=== PATIENT | female | born 1990 | race Caucasian/White ===

== ENCOUNTER 2018-02-12 00:12 | Emergency (ER) | payer OTHER ==
[2018-02-12 00:52] VITALS: BP 118/75; PULSE 79; TEMP 97.7; BMI 31.1
--- NOTE | 2018-02-12 01:10 | PDOC ---
History of Present Illness - General History Source: Patient Exam Limitations: No Limitations - History of Present Illness Initial Comments: 02/12/18 01:28 The patient is a 27 year old female with a significant PMH of left oophorectomy and appendectomy who presents to the emergency department with lower abdominal pain beginning approximately 3 hours ago. The patient reports eating chicken breast and salad last night and developing lower abdominal pain about 30 minutes later at 10:00PM. She states her lower abdominal pain is worse in the RLQ, which is aggravated by laughing, coughing, and standing upright. She reports taking Motrin 600mg to no relief. The patient notes her sister said she had mild abdominal pain after eating as well, but is now sleeping comfortably. The patient states she was in her usual state of health prior to 10:00PM. The patient denies chest pain, shortness of breath, headache and dizziness. Denies fever, nausea, vomit, diarrhea and constipation. Denies dysuria, frequency, urgency and hematuria. LMP: 3 weeks ago. Allergies: NKA Past surgical history: Left oophorectomy. Appendectomy. Abdominoplasty. Social history: No reported cigarette, alcohol, or drug use. PCP: Dr. Raymond Zavala <Ike Conner - Last Filed: 02/12/18 02:31> <Cassia Knight - Last Filed: 02/12/18 04:52> - General Chief Complaint: Pain, Acute Stated Complaint: ABD PAIN Past History <Ike Conner - Last Filed: 02/12/18 02:31> - Past Medical History Asthma: No Cancer: No Cardiac Disorders: No Diabetes: No HTN: No Seizures: No Thyroid Disease: No - Surgical History Abdominal Surgery: Yes Appendectomy: Yes - Reproductive History (#): 2 Para: 1 - Suicide/Smoking/Psychosocial Hx Smoking Status: No Smoking History: Never smoked Have you smoked in the past 12 months: No Number of Cigarettes Smoked Daily: 0 Information on smoking cessation initiated: No Hx Alcohol Use: No Drug/Substance Use Hx: No Substance Use Type: None Hx Substance Use Treatment: No <Cassia Knight - Last Filed: 02/12/18 04:52> - Past Medical History Allergies/Adverse Reactions: Allergies Allergy/AdvReac Type Severity Reaction Status Date / Time No Known Allergies Allergy Verified 02/12/18 00:28 Home Medications: Ambulatory Orders Doxycycline Hyclate 100 mg PO BID 14 Days #27 tablet 02/12/18 Review of Systems - Review of Systems Able to Perform ROS?: Yes Comments:: 02/12/18 01:28 CONSTITUTIONAL: (+) Chills yesterday (resolved). Absent: fever, no fatigue EYES: Absent: visual changes ENT: Absent: ear pain, no sore throat CARDIOVASCULAR: Absent: chest pain, no palpitations RESPIRATORY: Absent: cough, no SOB GI: (+) Lower abdominal pain, worse in RLQ. Absent: no nausea, no vomiting, no constipation, no diarrhea GENITOURINARY: Absent: dysuria, no frequency, no hematuria MUSKULOSKELETAL: Absent: back pain, no arthralgia, no myalgia SKIN: Absent: rash NEURO: Absent: headache <Ike Conner - Last Filed: 02/12/18 02:31> *Physical Exam - Vital Signs Last Vital Signs Temp Pulse Resp BP Pulse Ox 97.7 F 79 20 118/75 96 02/12/18 00:28 02/12/18 00:28 02/12/18 00:28 02/12/18 00:28 02/12/18 00:28 - Physical Exam Comments: 02/12/18 02:32 GENERAL: Well-appearing, well-nourished. No apparent distress. HEENT: Normocephalic, atraumatic. PERRL, EOM intact. CARDIOVASCULAR: Normal S1, S2. Regular rate and rhythm. PULMONARY: Clear to auscultation bilaterally. ABDOMEN: (+) RLQ tenderness. (+) Periumbilical tenderness. (+) Healed abdominoplasty. Soft, non-distended, non-tender. EXTREMITIES: Normal ROM in all four extremities. No gross deformities. SKIN: Warm, dry. No rash NEUROLOGICAL: No focal neurological deficits. <Ike Conner - Last Filed: 02/12/18 02:31> - Vital Signs Last Vital Signs Temp Pulse Resp BP Pulse Ox 97.7 F 79 20 118/75 96 02/12/18 00:28 02/12/18 00:28 02/12/18 00:28 02/12/18 00:28 02/12/18 00:28 - Physical Exam Female Pelvic Exam: positive: normal external exam, cervical os closed, discharge (white/yellow), adnexal tenderness (R), other (+IUD strings visualized , +CMT). negative: lesions, vaginal bleeding <Cassia Knight - Last Filed: 02/12/18 04:52> ED Treatment Course - LABORATORY CBC & Chemistry Diagram: 02/12/18 02:15 02/12/18 02:15 <Ike Conner - Last Filed: 02/12/18 02:31> - LABORATORY CBC & Chemistry Diagram: 02/12/18 02:15 02/12/18 02:15 <Cassia Knight - Last Filed: 02/12/18 04:52> Medical Decision Making - Medical Decision Making 02/12/18 04:44 Pt presenting with lower abd pain, vomiting and diarrhea. On exam, pain predominantly R pelvic region, pt is s/p appendectomy as a child. Pelvic exam revealed white/yellow discharge, CMT and R adnexal tnd c/w PID. Will treat with ceftriaxone 250mg IM and doxy 100mg BID x14 days. Feeling improved after pain meds, no further episodes of vomiting. Will dc home - advised to return to ER if sxs worsen. Instructed to abstain from sex until she knows her results and if pos that her partner must be treated as well. Pt verbalized understanding. <Cassia Knight - Last Filed: 02/12/18 04:52> *DC/Admit/Observation/Transfer - Attestations Scribe Attestion: 02/12/18 01:28 Documentation prepared by Ike Conner, acting as biomedical field service engineer for Cassia Knight DO. <Ike Conner - Last Filed: 02/12/18 02:31> - Discharge Dispostion Admit: No <Cassia Knight - Last Filed: 02/12/18 04:52> Diagnosis at time of Disposition: Pelvic pain - Discharge Dispostion Disposition: HOME - Prescriptions Prescriptions: Doxycycline Hyclate 100 mg PO BID 14 Days #27 tablet - Referrals Referrals: Raymond Zavala [Primary Care Provider] - - Patient Instructions Printed Discharge Instructions: DI for Pelvic Inflammatory Disease Additional Instructions: Take the antibiotics as prescribed, return to the ER if your symptoms worsen - fever, chills, more vomiting. You may call [phone] in 3-4 days for results of your tests.
[2018-02-12] MEDS ORDERED: SODIUM CHLORIDE 1,000 ML IV STA (01:28)
[2018-02-12] MEDS ORDERED: morphine CARPU-JECT 2 MG/1 ML DISP.SYRIN IVPUSH ONE (01:28)
[2018-02-12] MEDS ORDERED: ONDANSETRON 4 MG/2 ML VIAL IVPUSH ONE (01:29)
[2018-02-12] MEDS ORDERED: morphine SULFATE 4 MG/ML VIAL ONE (02:25)
[2018-02-12] MEDS ORDERED: ONDANSETRON 4 MG/2 ML VIAL ONE (02:25)
[2018-02-12 02:28] LABS: BASO % 0.6 % (0-2.0); EOS % 2.2 % (0-4.5); HEMOGLOBIN 12.9 GM/dL (10.7-15.3); LYMPH % 20.8 % (8-40); MCH 32.1 pg (25.7-33.7); MEAN CELL VOLUME 91.7 fl (80-96); MEAN PLT VOLUME 9.1 fl (7.5-11.1); MONO % 7.2 % (3.8-10.2); NEUT % 69.2 % (42.8-82.8); PLATELET COUNT 205 K/MM3 (134-434); RBC 4.04 M/mm3 (3.60-5.2); RDW 13.2 % (11.6-15.6)
[2018-02-12 02:45] LABS: URINE APPEARANCE SLCLOUDY; URINE BILIRUBIN NEGATIVE (<2.0 mg/dL); URINE COLOR YELLOW; URINE GLUCOSE (UA) NEGATIVE (NEGATIVE); URINE KETONE NEGATIVE (NEGATIVE); URINE NITRITE NEGATIVE (NEGATIVE); URINE PROTEIN NEGATIVE (NEGATIVE); URINE UROBILINOGEN NEGATIVE mg/dL (0.2-1.0)
[2018-02-12 02:46] LABS: URINE LEUK ESTERASE 2+ (NEGATIVE)
[2018-02-12 02:56] LABS: ALBUMIN 3.6 g/dl (3.4-5.0); ANION GAP 9 (8-16); BILIRUBIN,TOTAL 0.5 mg/dL (0.2-1.0); BLOOD UREA NITROGEN 10 mg/dL (7-18); CALCIUM 8.3 mg/dL (8.5-10.1); CHLORIDE 106 mmol/L (98-107); CO2 24 mmol/L (21-32); CREATININE 0.7 mg/dL (0.55-1.02); GLUCOSE,RANDOM 85 mg/dL (74-106); POTASSIUM 3.9 mmol/L (3.5-5.1); SGOT/AST 23 U/L (15-37); SGPT/ALT 27 U/L (12-78); SODIUM 139 mmol/L (136-145); TOT PROT 7.3 g/dl (6.4-8.2)
[2018-02-12 02:58] LABS: ALK PHOS 71 U/L (45-117)
[2018-02-12 03:28] LABS: EPI CELLS FEW /HPF (FEW); URINE BACTERIA RARE /hpf (NONE SEEN); URINE MUCUS FEW
[2018-02-12] MEDS ORDERED: KETOROLAC TROMETHAMINE 30 MG/1 ML VIAL IVPUSH ONE (03:35)
[2018-02-12] MEDS ORDERED: KETOROLAC TROMETHAMINE 30 MG/1 ML VIAL ONE (03:36)
[2018-02-12] MEDS ORDERED: DOXYCYCLINE HYCLATE 100 MG CAPSULE PO ONE ×2 (04:41→04:46)
[2018-02-12] MEDS ORDERED: LIDOCAINE HCL/PF 1% SDV 5ML VIAL ONE (04:46)
[2018-02-12] MEDS ORDERED: cefTRIAXone SODIUM 1 GM VIAL ONE (04:47)
== END 2018-02-12 05:13 | disposition home or self-care (01) ==
LOC: JER 00:12
PROC: 3E02329 Introduction of Other Anti-infective into Muscle, Percutaneous Approach (ICD-10-PCS; principal; 2018-02-12)
PROC: 3E0337Z Introduction of Electrolytic and Water Balance Substance into Peripheral Vein, Percutaneous Approach (ICD-10-PCS; 2018-02-12)
PROC: 3E033NZ Introduction of Analgesics, Hypnotics, Sedatives into Peripheral Vein, Percutaneous Approach (ICD-10-PCS; 2018-02-12)
PROC: 3E0333Z Introduction of Anti-inflammatory into Peripheral Vein, Percutaneous Approach (ICD-10-PCS; 2018-02-12)
PROC: 3E033GC Introduction of Other Therapeutic Substance into Peripheral Vein, Percutaneous Approach (ICD-10-PCS; 2018-02-12)
DX: N73.8 Other specified female pelvic inflammatory diseases (principal); R10.2 Pelvic and perineal pain; Z90.721 Acquired absence of ovaries, unilateral; Z97.5 Presence of (intrauterine) contraceptive device
CPT/HCPCS: 36415; 80053; 81003; 81015; 83690; 84702; 85025; 87086; 87491; 87591; 99281-25; 99283-25; J7030

== ENCOUNTER 2018-05-08 22:27 | Emergency (ER) | payer OTHER ==
[2018-05-08 22:49] VITALS: BP 146/78; PULSE 75; TEMP 98.1; BMI 32.9
--- NOTE | 2018-05-09 01:09 | PDOC ---
History of Present Illness - General Chief Complaint: Cold Symptoms Stated Complaint: FATIGUE Time Seen by Provider: 05/08/18 23:04 History Source: Patient Exam Limitations: No Limitations - History of Present Illness Initial Comments: 05/09/18 01:07 Best Contact: PCP:None Pmhx: None Pshx: 2015: Abdominoplasty, at 9 years: Left oophorectomy Allergies:NKDA FH:0 Social Hx: Cigarettes/ 0 Alcohol/ social Drugs/0 LMP:04/22/2018 27-year-old female presents to the ER complaining of sore throat described as 5/ 10 achy nonradiating intermittent discomfort with left ear fullness/subjective fever but denies nausea/vomiting/diarrhea. Patient denies dizziness, headache, lightheadedness, facial pains, rhinorrhea, nasal congestion, neck stiffness/pain , back pains, chest pain, shortness of breath, abdominal pains, flank pains, urinary symptoms. Past History - Past Medical History Allergies/Adverse Reactions: Allergies Allergy/AdvReac Type Severity Reaction Status Date / Time No Known Allergies Allergy Verified 02/12/18 00:28 Home Medications: Ambulatory Orders Doxycycline Hyclate 100 mg PO BID 14 Days #27 tablet 02/12/18 Asthma: No Cancer: No Cardiac Disorders: No CVA: No COPD: No Diabetes: No HTN: No Seizures: No Thyroid Disease: No - Surgical History Abdominal Surgery: Yes (A/P, L oophrectomy) Appendectomy: Yes - Reproductive History (#): 2 Para: 1 - Suicide/Smoking/Psychosocial Hx Smoking Status: No Smoking History: Never smoked Have you smoked in the past 12 months: No Number of Cigarettes Smoked Daily: 0 Information on smoking cessation initiated: No Hx Alcohol Use: No Drug/Substance Use Hx: No Substance Use Type: None Hx Substance Use Treatment: No Review of Systems - Review of Systems Able to Perform ROS?: Yes Comments:: 05/09/18 01:04 CONSTITUTIONAL: +subjective fever Absent: chills, diaphoresis, generalized weakness, malaise, loss of appetite HEENT: +sore throat Absent: rhinorrhea, nasal congestion, throat swelling, difficulty swallowing, mouth swelling, ear pain, eye pain, visual Changes CARDIOVASCULAR: Absent: chest pain, loss of consciousness, palpitations, irregular heart rate, peripheral edema RESPIRATORY: +non productive cough Absent: shortness of breath, dyspnea with exertion, orthopnea, wheezing, stridor , hemoptysis GASTROINTESTINAL: Absent: abdominal pain, abdominal distension, nausea, vomiting, diarrhea, constipation, melena, hematochezia GENITOURINARY: Absent: dysuria, frequency, urgency, hesitancy, hematuria, flank pain, genital pain MUSCULOSKELETAL: Absent: myalgia, arthralgia, joint swelling SKIN: Absent: rash, itching, pallor HEMATOLOGIC/IMMUNOLOGIC: Absent: easy bleeding, easy bruising, lymphadenopathy, frequent infections ENDOCRINE: Absent: unexplained weight gain, unexplained weight loss, heat intolerance, cold intolerance NEUROLOGIC: Absent: headache, focal weakness or paresthesias, dizziness, unsteady gait, seizure, mental status changes, bladder or bowel incontinence Is the patient limited [place]ian proficient: No *Physical Exam - Vital Signs Last Vital Signs Temp Pulse Resp BP Pulse Ox 98.1 F 75 20 146/78 98 05/08/18 22:44 05/08/18 22:44 05/08/18 22:44 05/08/18 22:44 05/08/18 22:44 - Physical Exam Comments: 05/09/18 01:05 GENERAL: Well developed, well nourished. Awake and alert. No acute distress. HEENT: Normocephalic, atraumatic. PERRLA, EOMI. No conjunctival pallor. Sclera are non- icteric. Moist mucous membranes. Oropharynx is clear. NECK: Supple. Full ROM. No JVD. Carotid pulses 2+ and symmetric, without bruits. No thyromegaly. No lymphadenopathy. CARDIOVASCULAR: Regular rate and rhythm. No murmurs, rubs, or gallops. Distal pulses are 2+ and symmetric. PULMONARY: No evidence of respiratory distress. Lungs clear to auscultation bilaterally. No wheezing, rales or rhonchi. ABDOMINAL: Soft. Non-tender. Non-distended. No rebound or guarding. No organomegaly. Normoactive bowel sounds. MUSCULOSKELETAL Normal range of motion at all joints. No bony deformities or tenderness. No CVA tenderness. EXTREMITIES: No cyanosis. No clubbing. No edema. No calf tenderness. SKIN: Warm and dry. Normal capillary refill. No rashes. No jaundice. NEUROLOGICAL: Alert, awake, appropriate. Cranial nerves 2-12 intact. No deficits to light touch and temperature in face, upper extremities and lower extremities. No motor deficits in the in face, upper extremities and lower extremities. Normoreflexic in the upper and lower extremities. Normal speech. Toes are down- going bilaterally. Gait is normal without ataxia. PSYCHIATRIC: Cooperative. Good eye contact. Appropriate mood and affect. ED Treatment Course - ADDITIONAL ORDERS Additional order review: 05/09/18 00:23 Group A Strep Rapid Antigen - Preliminary Throat *DC/Admit/Observation/Transfer Diagnosis at time of Disposition: Bronchitis - Discharge Dispostion Disposition: HOME Condition at time of disposition: Stable Decision to Admit order: No - Referrals Referrals: Vimal Arriola MD [Staff Physician] - - Patient Instructions Printed Discharge Instructions: DI for Acute Bronchitis Additional Instructions: Increase fluids Rest Antibiotics until completion Follow up with your physician or the primary care physician listed on your discharge within 3 days Return back to the ER for severe/persistent or worsening symptoms - Post Discharge Activity
== END 2018-05-09 01:16 | disposition home or self-care (01) ==
LOC: JER 22:27
DX: J40 Bronchitis, not specified as acute or chronic (principal)
CPT/HCPCS: 87070; 87430; 99281-25

== ENCOUNTER 2020-10-16 02:54 | Inpatient (IN) | payer OTHER ==
[2020-10-16] MEDS ORDERED: ACETAMINOPHEN 1000 MG/100 ML VIAL (NON FORMULARY) IVPB ONE (03:39)
[2020-10-16] MEDS ORDERED: ONDANSETRON 4 MG/2 ML VIAL IVPUSH ONE (03:39)
[2020-10-16] MEDS ORDERED: LACTATED RINGERS SOLUTION 1000 ML INFUS.BAG IV ONE (03:40)
[2020-10-16] MEDS ORDERED: ONDANSETRON 4 MG/2 ML VIAL ONE (03:59)
[2020-10-16] MEDS ORDERED: ACETAMINOPHEN INJECTION 100 ML IVPB ONE (03:59)
[2020-10-16 04:24] LABS: HCG,QUALITATIVE URINE Negative
[2020-10-16 04:28] LABS: EPI CELLS >36 /uL (0-25.1); HYALINE CASTS 4 /uL (0-3.1); PH,URINE 6.5 (5.0-8.0); URINE APPEARANCE CLEAR; URINE BILIRUBIN 2+ (NEGATIVE); URINE COLOR DK YELLOW; URINE GLUCOSE (UA) NEGATIVE (NEGATIVE); URINE KETONE TRACE (NEGATIVE); URINE LEUK ESTERASE 1+ (NEGATIVE); URINE NITRITE POSITIVE (NEGATIVE); URINE PROTEIN TRACE (NEGATIVE); URINE WBC 26 /uL (0-25.8)
[2020-10-16 04:32] LABS: BASO % 0.3 % (0-2.0); EOS % 2.3 % (0-4.5); HEMATOCRIT 42.9 % (32.4-45.2); HEMOGLOBIN 14.4 GM/dL (10.7-15.3); LYMPH % 17.4 % (8-40); MCH 30.9 pg (25.7-33.7); MCHC 33.6 g/dl (32.0-36.0); MEAN CELL VOLUME 92.1 fl (80-96); MEAN PLT VOLUME 8.9 fl (7.5-11.1); MONO % 10.6 % (3.8-10.2); NEUT % 69.4 % (42.8-82.8); RBC 4.65 M/mm3 (3.60-5.2); RDW 13.6 % (11.6-15.6); WHITE BLOOD COUNT 7.3 K/mm3 (4.0-10.0)
[2020-10-16 04:50] LABS: INR 1.06 (0.83-1.09)
[2020-10-16 04:52] LABS: ACTIVATED PTT 32.2 SECONDS (25.2-36.5)
[2020-10-16 05:00] LABS: POTASSIUM 3.7 mmol/L (3.5-5.1)
[2020-10-16 05:02] LABS: ALBUMIN 3.8 g/dl (3.4-5.0); BLOOD UREA NITROGEN 6.2 mg/dL (7-18); CALCIUM 8.8 mg/dL (8.5-10.1)
[2020-10-16 05:04] LABS: CREATININE 0.6 mg/dL (0.55-1.3)
[2020-10-16 05:06] LABS: BILIRUBIN,TOTAL 2.3 mg/dL (0.2-1); TOT PROT 7.9 g/dl (6.4-8.2)
[2020-10-16 05:23] LABS: PLATELET COUNT 234 K/MM3 (134-434); PLATELET ESTIMATE ADEQUATE
[2020-10-16] MEDS ORDERED: morphine CARPU-JECT 4 MG/1 ML DISP.SYRIN IVPUSH ONE (08:27)
[2020-10-16] MEDS ORDERED: PIPERACILLIN/TAZOB 4.5 GM 4.5 GM in DEXTROSE 5%-WATER 100 ML IVPB ONE (08:32)
[2020-10-16] MEDS ORDERED: morphine SULFATE 4 MG/ML VIAL ONE (09:05)
[2020-10-16] MEDS ORDERED: PIPERACILLIN/TAZOB 4.5 GM 4.5 GM/100 ML BAG IVPB ONE (09:05)
[2020-10-16] MEDS: SODIUM CHLORIDE 1,000 ML IV SCH (09:20)
[2020-10-16] MEDS ORDERED: PIPERACILLIN/TAZOB 3.375 GM 3.375 GM in DEXTROSE 5%-WATER - 50 ML IVPB SCH (18:00)
[2020-10-16] MEDS ORDERED: PIPERACILLIN/TAZOB 3.375 GM 3.375 GM/50 ML BAG IVPB ONE (18:10)
[2020-10-16] MEDS: PIPERACILLIN/TAZOB 3.375 GM 3.375 GM in DEXTROSE 5%-WATER - 50 ML IVPB SCH (18:21)
[2020-10-16] MEDS ORDERED: MORPHINE SULFATE 2 MG/ML VIAL ONE (18:32)
[2020-10-16] MEDS: morphine CARPU-JECT 2 MG/1 ML DISP.SYRIN IVPUSH PRN (18:42)
[2020-10-17] MEDS ORDERED: MORPHINE SULFATE 2 MG/ML VIAL ONE ×4 (01:20→22:41)
[2020-10-17] MEDS: morphine CARPU-JECT 2 MG/1 ML DISP.SYRIN IVPUSH PRN ×4 (01:30→22:47)
[2020-10-17] MEDS ORDERED: PIPERACILLIN/TAZOB 3.375 GM 3.375 GM/50 ML BAG IVPB ONE ×3 (03:31→18:21)
[2020-10-17] MEDS: PIPERACILLIN/TAZOB 3.375 GM 3.375 GM in DEXTROSE 5%-WATER - 50 ML IVPB SCH ×3 (03:40→18:28)
[2020-10-17 07:31] LABS: BASO % 0.5 % (0-2.0); EOS % 5.8 % (0-4.5); HEMATOCRIT 39.8 % (32.4-45.2); HEMOGLOBIN 13.3 GM/dL (10.7-15.3); LYMPH % 17.7 % (8-40); MCHC 33.5 g/dl (32.0-36.0); MEAN CELL VOLUME 92.5 fl (80-96); MEAN PLT VOLUME 8.8 fl (7.5-11.1); MONO % 6.8 % (3.8-10.2); NEUT % 69.2 % (42.8-82.8); PLATELET COUNT 217 K/MM3 (134-434); RDW 13.4 % (11.6-15.6); WHITE BLOOD COUNT 6.8 K/mm3 (4.0-10.0)
[2020-10-17 07:56] LABS: POTASSIUM 4.2 mmol/L (3.5-5.1)
[2020-10-17 08:01] LABS: ALBUMIN 3.4 g/dl (3.4-5.0); BLOOD UREA NITROGEN 3.7 mg/dL (7-18); CALCIUM 8.3 mg/dL (8.5-10.1)
[2020-10-17 08:03] LABS: CREATININE 0.5 mg/dL (0.55-1.3); INR 1.13 (0.83-1.09); PROTHROMBIN TIME (PATIENT) 13.8 SEC (9.7-13.0)
[2020-10-17 08:05] LABS: BILIRUBIN,TOTAL 2.6 mg/dL (0.2-1); TOT PROT 6.8 g/dl (6.4-8.2)
[2020-10-17] MEDS: SODIUM CHLORIDE 1,000 ML IV SCH (08:25)
[2020-10-18] MEDS: SODIUM CHLORIDE 1,000 ML IV SCH (01:34)
[2020-10-18] MEDS ORDERED: PIPERACILLIN/TAZOBACTAM 3.375 GM VIAL IVPB ONE ×3 (01:35→18:19)
[2020-10-18] MEDS ORDERED: DEXTROSE 5%-WATER - 50 ML IVPB ONE ×3 (01:35→18:20)
[2020-10-18] MEDS ORDERED: PT OWN MED DRAWER 7, Y5N ONE (01:35)
[2020-10-18] MEDS: PIPERACILLIN/TAZOB 3.375 GM 3.375 GM in DEXTROSE 5%-WATER - 50 ML IVPB SCH ×3 (01:37→18:21)
[2020-10-18] MEDS: MORPHINE SULFATE 2 MG/ML VIAL IVPUSH PRN ×3 (04:42→22:46)
[2020-10-18 04:55] VITALS: BMI 34.4
[2020-10-18 09:01] LABS: BASO % 0.6 % (0-2.0); EOS % 7.6 % (0-4.5); HEMATOCRIT 39.1 % (32.4-45.2); HEMOGLOBIN 13.2 GM/dL (10.7-15.3); MCH 31.4 pg (25.7-33.7); MCHC 33.8 g/dl (32.0-36.0); MEAN CELL VOLUME 92.9 fl (80-96); MONO % 9.4 % (3.8-10.2); NEUT % 61.4 % (42.8-82.8); PLATELET COUNT 213 K/MM3 (134-434); RDW 13.6 % (11.6-15.6); WHITE BLOOD COUNT 7.8 K/mm3 (4.0-10.0)
[2020-10-18 09:18] LABS: POTASSIUM 4.2 mmol/L (3.5-5.1)
[2020-10-18 09:24] LABS: CALCIUM 8.1 mg/dL (8.5-10.1)
[2020-10-18 09:25] LABS: ALBUMIN 3.3 g/dl (3.4-5.0); BLOOD UREA NITROGEN 3.5 mg/dL (7-18)
[2020-10-18 09:28] LABS: BILIRUBIN,DIRECT 0.6 mg/dL (0.0-0.2); CREATININE 0.5 mg/dL (0.55-1.3)
[2020-10-18 09:30] LABS: BILIRUBIN,TOTAL 1.1 mg/dL (0.2-1); TOT PROT 6.9 g/dl (6.4-8.2)
[2020-10-18] MEDS: D5-1/2NS+20 MEQ KCL - 20 MEQ/1,000 ML INFUS.BAG IV SCH ×2 (11:48→20:52)
[2020-10-18 21:10] LABS: HEP B CORE AB, TOT Negative (Negative)
[2020-10-19] MEDS ORDERED: PIPERACILLIN/TAZOBACTAM 3.375 GM VIAL IVPB ONE (01:18)
[2020-10-19] MEDS ORDERED: DEXTROSE 5%-WATER - 50 ML IVPB ONE (01:18)
[2020-10-19] MEDS: PIPERACILLIN/TAZOB 3.375 GM 3.375 GM in DEXTROSE 5%-WATER - 50 ML IVPB SCH (01:25)
[2020-10-19] MEDS ORDERED: MELATONIN 5 MG TABLETS PO ONE (01:25)
[2020-10-19] MEDS: SODIUM CHLORIDE 1,000 ML IV SCH (01:30)
[2020-10-19] MEDS: D5-1/2NS+20 MEQ KCL - 20 MEQ/1,000 ML INFUS.BAG IV SCH ×2 (06:04→11:13)
[2020-10-19] MEDS ORDERED: BUPIVACAINE HCL 50 ML ONE (07:17)
[2020-10-19] MEDS ORDERED: NEOSTIGMINE METHYLSULFATE 0.5 MG/1 ML - 10 ML MDV ONE ×2 (07:56)
[2020-10-19] MEDS ORDERED: DEXAMETHASONE SOD PHOSPHATE 4 MG/1 ML VIAL ONE (07:56)
[2020-10-19] MEDS ORDERED: EPHEDRINE SULFATE/0.9% NACL/PF 50 MG/10 ML SYRINGE NR ONE (07:56)
[2020-10-19] MEDS ORDERED: ONDANSETRON 4 MG/2 ML VIAL ONE (07:56)
[2020-10-19] MEDS ORDERED: PROPOFOL 20 ML ONE ×2 (07:56→07:57)
[2020-10-19] MEDS ORDERED: GLYCOPYRROLATE 0.2 MG/1 ML VIAL ONE (07:56)
[2020-10-19] MEDS ORDERED: MIDAZOLAM HCL 2 MG/2 ML SINGLE DOSE VIAL ONE (07:57)
[2020-10-19] MEDS ORDERED: SUCCINYLCHOLINE CHLORIDE 200 MG/10 ML SYRINGE ONE (07:57)
[2020-10-19] MEDS ORDERED: ROCURONIUM BROMIDE 50 MG/5 ML SYRINGE ONE (07:58)
[2020-10-19] MEDS ORDERED: KETOROLAC TROMETHAMINE 30 MG/1 ML VIAL ONE (07:58)
[2020-10-19] MEDS ORDERED: oxyCODONE HCL 5 MG TABLET PO PRN (08:52)
[2020-10-19] MEDS ORDERED: ONDANSETRON 4 MG/2 ML VIAL IVPUSH PRN ×2 (08:52→09:40)
[2020-10-19] MEDS ORDERED: PROMETHAZINE HCL 25 MG/1 ML VIAL IVPB PRN ×2 (08:52→09:40)
[2020-10-19] MEDS: oxyCODONE HCL 5 MG TABLET PO PRN ×2 (11:16→20:06)
[2020-10-19] MEDS: MORPHINE SULFATE 2 MG/ML VIAL IVPUSH PRN ×2 (13:21→21:46)
[2020-10-19 14:22] LABS: BASO % 0.2 % (0-2.0); EOS % 0.2 % (0-4.5); HEMATOCRIT 39.9 % (32.4-45.2); HEMOGLOBIN 13.4 GM/dL (10.7-15.3); LYMPH % 6.7 % (8-40); MCHC 33.6 g/dl (32.0-36.0); MEAN PLT VOLUME 9.2 fl (7.5-11.1); MONO % 2.1 % (3.8-10.2); NEUT % 90.8 % (42.8-82.8); PLATELET COUNT 218 K/MM3 (134-434); RBC 4.34 M/mm3 (3.60-5.2); RDW 13.5 % (11.6-15.6); WHITE BLOOD COUNT 7.4 K/mm3 (4.0-10.0)
[2020-10-19 14:43] LABS: POTASSIUM 4.5 mmol/L (3.5-5.1)
[2020-10-19 14:45] LABS: CALCIUM 8.4 mg/dL (8.5-10.1)
[2020-10-19 14:46] LABS: ALBUMIN 3.5 g/dl (3.4-5.0)
[2020-10-19 14:49] LABS: CREATININE 0.5 mg/dL (0.55-1.3)
[2020-10-19 14:50] LABS: BILIRUBIN,TOTAL 1.2 mg/dL (0.2-1)
[2020-10-19 14:51] LABS: TOT PROT 7.3 g/dl (6.4-8.2)
[2020-10-19 14:57] LABS: BLOOD UREA NITROGEN 1.8 mg/dL (7-18)
[2020-10-19] MEDS ORDERED: PT OWN MED DRAWER 7, Y5N ONE (23:56)
[2020-10-20] MEDS: D5-1/2NS+20 MEQ KCL - 20 MEQ/1,000 ML INFUS.BAG IV SCH ×3 (00:35→22:35)
[2020-10-20] MEDS: MELATONIN 5 MG TABLETS PO PRN ×2 (01:46→22:57)
[2020-10-20] MEDS: oxyCODONE HCL 5 MG TABLET PO PRN ×2 (01:47→08:48)
[2020-10-20] MEDS: MORPHINE SULFATE 2 MG/ML VIAL IVPUSH PRN (02:34)
[2020-10-20] MEDS ORDERED: oxyCODONE HCL 5 MG TABLET PO PRN (10:47)
[2020-10-20] MEDS ORDERED: ACETAMINOPHEN 325 MG TABLET (FP) PO PRN (11:37)
[2020-10-20 13:49] LABS: ALBUMIN 3.4 g/dl (3.4-5.0)
[2020-10-20 13:52] LABS: BILIRUBIN,DIRECT 0.4 mg/dL (0.0-0.2)
[2020-10-20 13:55] LABS: BILIRUBIN,TOTAL 0.7 mg/dL (0.2-1)
[2020-10-21] MEDS: D5-1/2NS+20 MEQ KCL - 20 MEQ/1,000 ML INFUS.BAG IV SCH (07:29)
[2020-10-21 09:51] LABS: HEMOGLOBIN 12.3 GM/dL (10.7-15.3); MCH 30.7 pg (25.7-33.7); MCHC 33.2 g/dl (32.0-36.0); MEAN CELL VOLUME 92.4 fl (80-96); MEAN PLT VOLUME 9.7 fl (7.5-11.1); PLATELET COUNT 203 K/MM3 (134-434); RDW 13.3 % (11.6-15.6); WHITE BLOOD COUNT 4.9 K/mm3 (4.0-10.0)
[2020-10-21] MEDS ORDERED: traMADol HCL 50 MG TABLET PO PRN (10:06)
[2020-10-21 10:19] LABS: CALCIUM 8.3 mg/dL (8.5-10.1)
[2020-10-21 10:20] LABS: ALBUMIN 3.1 g/dl (3.4-5.0)
[2020-10-21 10:23] LABS: CREATININE 0.5 mg/dL (0.55-1.3)
[2020-10-21 10:24] LABS: BILIRUBIN,TOTAL 0.7 mg/dL (0.2-1); TOT PROT 6.5 g/dl (6.4-8.2)
[2020-10-21 11:18] LABS: BLOOD UREA NITROGEN 1.5 mg/dL (7-18)
[2020-10-21] MEDS ORDERED: DOCUSATE SODIUM 100 MG CAPSULE (FP) PO ONE (13:30)
[2020-10-21] MEDS: MELATONIN 5 MG TABLETS PO PRN (20:35)
[2020-10-22] MEDS ORDERED: ONDANSETRON *ODT* 4 MG TABLET SL PRN (08:37)
[2020-10-22 09:46] VITALS: BP 123/65; PULSE 97; TEMP 98
[2020-10-22] MEDS ORDERED: PANTOPRAZOLE 40 MG TABLET PO SCH (10:00)
[2020-10-22 14:04] LABS: ALBUMIN 3.3 g/dl (3.4-5.0)
[2020-10-22 14:06] LABS: BILIRUBIN,DIRECT 0.3 mg/dL (0.0-0.2)
[2020-10-22 14:08] LABS: BILIRUBIN,TOTAL 0.4 mg/dL (0.2-1)
== END 2020-10-22 15:12 | disposition home or self-care (01) | DRG 263 ==
LOC: JER 02:54 → JERBED 08:32 → J5S 10-18 01:33
PROVIDERS: ADMIT Family Medicine; ATTEND Family Medicine
PROC: 0FT44ZZ Resection of Gallbladder, Percutaneous Endoscopic Approach (ICD-10-PCS; principal; 2020-10-19 08:00)
DX: K80.63 Calculus of gallbladder and bile duct with acute cholecystitis with obstruction (principal); R94.5 Abnormal results of liver function studies; R10.33 Periumbilical pain; N39.0 Urinary tract infection, site not specified; T40.605A Adverse effect of unspecified narcotics, initial encounter
CPT/HCPCS: 36415; 71046-TC-FY; 74182-TC; 76700-TC; 80053; 80076; 81003; 82150; 82962; 83525; 83690; 84703; 85025; 85027; 85610; 85730; 86704; 86706; 86707; 86708; 86709; 86803; 86850; 86900; 86901; 87086; 87340; 88304-TC; 93005; 93010; 94760; 99285-25; C1887; C9803; J0131; U0003

== ENCOUNTER 2024-04-29 00:42 | Emergency (ER) | payer OTHER ==
[2024-04-29 00:51] VITALS: BP 112/69; PULSE 90; RESP 18; TEMP 98.6; BMI 32.9
[2024-04-29] MEDS ORDERED: AMOXICILLIN 250 MG CAPSULE ONE (01:29)
[2024-04-29] MEDS: AMOXICILLIN 500 MG CAPSULE (FP) PO ONE (01:31)
== END 2024-04-29 01:55 | disposition home or self-care (01) ==
LOC: JER 00:42
DX: H66.91 Otitis media, unspecified, right ear (principal)
CPT/HCPCS: 99283-25